=== PATIENT | male | born 1955 | race Caucasian/White ===

== ENCOUNTER 2019-09-08 05:05 | Inpatient (IN) | payer OTHER ==
[2019-09-08] VITALS (55 sets, daily range): BP systolic 72–126; BP diastolic 37–72
[~2019-09-08] VITALS: Ht 157.5 cm; Wt 64.0 kg
--- NOTE | 2019-09-08 05:10 | NUR ---
64 Y/O MALE BIBA C/O DIZZINESS, WEAKNESS, AND FALL X 2-3HRS AGO. RATES PAIN LEVEL 8/10 AND IS LOCATED IN EPIGASTRIC REGION. DOES NOT RADIATE NO WHERE ELSE. PT DENIES HITTING HIS HEAD WHEN HE FELL. LUNG SOUNDS CLEAR ALL THYROUGHOUT. HEART SOUNDS S1S2 PRESENT. GI: N,V APPETITE CHANGE, JAUNDICE, YELLOW SCERLA, FLAT, SOFT, ACTIVE BS, ABD AND TENDERNESS ON EPIGASTRIC REGION. VSS. SKIN INACT. A & O X4. PMH: VERTIGO, HTN, HIGH CHOLESTEROL, DM, LIVER PROBS, PASS SMOKER (15 CIGS A DAY X 30 YEARS) QUIT. NKA.
--- NOTE | 2019-09-08 05:10 | NUR ---
PT BIBA BLS. TAKEN TO BED 3 Addendum: 09/08/19 at 0521 by PEARL PT BIBA ALS
--- NOTE | 2019-09-08 05:36 | NUR ---
EKG PERFORMED AT BEDSIDE
[2019-09-08] MEDS ORDERED: IBUPROFEN 600 MG TAB PO ONE (05:40)
--- NOTE | 2019-09-08 05:49 | NUR ---
Dr. Butler examining patient.
[2019-09-08 05:51] LABS: HEMATOCRIT 29.5 % (36-52); MEAN CORPUSCULAR HEMOGLOBIN 31 pg (27-31); MEAN CORPUSCULAR HGB CONC 34 g/dL (33-37); MEAN CORPUSCULAR VOLUME 90.3 fL (80-94); PLATELET COUNT (AUTO) 353 K/uL (140-450); RED BLOOD CELL COUNT(AUTO) 3.26 MIL/uL (4.20-6.10); RED CELL DISTRIBUTION WIDTH 14.9 % (11.6-13.7); WHITE BLOOD COUNT (AUTO) 6.5 K/uL (4.8-10.8)
--- NOTE | 2019-09-08 05:53 | NUR ---
PT TAKEN TO CT
--- NOTE | 2019-09-08 05:54 | NUR ---
URINE COLLECTED AND SENT TO LAB.
[2019-09-08 06:04] LABS: ANION GAP 17.2 (8-16); POTASSIUM 3.2 mmol/L (3.5-5.1)
[2019-09-08] MEDS ORDERED: METF1000 PO (06:04)
[2019-09-08] MEDS ORDERED: [UNRECOGNIZED DRUG - CODE] PO (06:04)
[2019-09-08 06:08] LABS: LYMPHOCYTES % (MANUAL) 9 % (20-46); MONOCYTES % (MANUAL) 2 % (5-12)
[2019-09-08 06:09] LABS: ALBUMIN 1.5 g/dL (3.4-5.0); TOTAL BILIRUBIN 14.4 mg/dL (0.0-1.0)
--- NOTE | 2019-09-08 06:12 | NUR ---
PT RETURNED BACK FROM CT VIA W/C.
[2019-09-08 06:14] LABS: APPEARANCE,URINE CLEAR (CLEAR); BILIRUBIN,URINE 3+ (NEGATIVE); BLOOD, URINE NEGATIVE (NEGATIVE); COLOR,URINE ORANGE (YELLOW); LEUKOCYTE ESTERASE ,URINE TRACE (NEGATIVE); NITRITE, URINE NEGATIVE (NEGATIVE); PH,URINE 6.5 (5.0-9.0); UGLUCOSE TRACE (NEGATIVE)
[2019-09-08 06:19] LABS: BARBITURATE, URINE NEG. ng/ml (NEG <=200); BENZODIAZEPINE, URINE NEG. ng/mL (NEG <=200); CANNABINOID, URINE NEG. ng/mL (NEG <=50); COCAINE, URINE NEG. ng/mL (NEG <=300); OPIATE, URINE NEG. ng/mL (NEG <=2000); PHENCYCLIDINE SCREEN,URINE NEG. ng/mL (NEG <=25)
[2019-09-08] MEDS ORDERED: NACL 0.9% 1,000 ML IV ONE ×2 (06:20→06:50)
[2019-09-08] MEDS ORDERED: MECLIZINE 25 MG TAB PO ONE (06:20)
[2019-09-08] MEDS ORDERED: ONDANSETRON 4 MG/2 ML VIAL IVP ONE (06:20)
[2019-09-08 06:23] LABS: RBC,URINE NONE SEEN /HPF (0-5); WBC,URINE 0-5 /HPF (0-5)
[2019-09-08 06:24] LABS: COARSE GRANULAR CASTS,URINE 0-10 /LPF (None Seen)
[2019-09-08] MEDS ORDERED: LEVOFLOXACIN 500 MG/D5W PREMIX 100 ML IV ONE (06:50)
[2019-09-08] MEDS ORDERED: DEXTROSE 50% 50 ML SYR IVP ONE (06:50)
[2019-09-08] MEDS ORDERED: LACTULOSE 20 GM/30 ML UDC PO ONE (07:00)
--- NOTE | 2019-09-08 07:00 | NUR ---
PT TRASNFERED TO CT VIA W/C.
[2019-09-08] MEDS ORDERED: POTASSIUM CHLORIDE 10 MEQ TABER PO ONE (07:05)
[2019-09-08] MEDS ORDERED: NACL 0.9% 1,000 ML IV SCH ×3 (07:11→10:15)
[2019-09-08] MEDS ORDERED: HYDROcodone/APAP 7.5/325 MG 1 TAB PO PRN (07:15)
[2019-09-08] MEDS ORDERED: MORPHINE SULFATE 2 MG/ML SYR IVP PRN (07:15)
[2019-09-08] MEDS ORDERED: ACETAMINOPHEN 325 MG TAB PO PRN (07:15)
--- NOTE | 2019-09-08 07:19 | NUR ---
PT BACK FROM CT. INTRODUCED SELF TO PT. VITALS TAKEN, BP 77/53, NOTIFIED RACK PUSHER. PT WILL BE ADMITTED TO ICU.
--- NOTE | 2019-09-08 07:20 | NUR ---
CALLED MADE TO DR BUTTERFIELD TO INFORM OF PT BP. ORDERS CHANGED TO ICU ADMIT.
--- NOTE | 2019-09-08 07:48 | NUR ---
RECEIVED PT FROM ER NURSE ARTURO. PT IS AOX4, ARMENIAN SPEAKING. DAUGHTER AND WITH PT. PT AMBULATED TO BED. GENERALIZED WEAKNESS. CC: SYNCOPE AT HOME. DX SIRS, R/O SEPSIS, SYNCOPE. HEART SOUND 21S2 HEARD. LUNG SOUNDS CLEAR, BOWEL SOUNDS ACTIVE. DENIES N/V AT THIS TIME. CONNECTED PT TO MONITOR. SR. LOW BP. O2 SAT 99%. RR EVEN AND UNLABORED. MRSA SWAB DONE. FLU SWAB DONE. IV TO LEFT AC 18G, FLUSHED, PATENT AND ASYMPTOMATIC, SL. IV TO LEFT AC 18G, RUNNING ROCEPHIN AT 100ML/HR, ASYMPTOMATIC. ORIENTED PT TO ROOM AND CALL LIGHT. FALL PRECAUTION INITIATED. BED LOCKED IN LOWEST POSITION. Addendum: 09/08/19 at 1611 by Brent Singh RN CHANGE "ROCEPHIN" TO "LEVAQUIN".
--- NOTE | 2019-09-08 07:53 | NUR ---
Patient will be admitted to care of [facility]. Admited to ICU . Will go to room #3. Belongings list completed. Report to DEDRICK BECKER.
--- NOTE | 2019-09-08 08:00 | NUR ---
SR JAVIER AND RESIDENTS CAME AND ROUNDED. MADE THEM AWARE OF LOW BP. DR VYAS ORDERED ANOTHER 1L BOLUS.
--- NOTE | 2019-09-08 08:10 | NUR ---
OFFERED ADULT BASIC EDUCATION TEACHER PHONE, HOWEVER, PT PREFERRED TO HAVE HIS DAUGHTER TO TRANSLATE. ADMISSION QUESTIONS ANSWERED. PT HAD MRI ABD DONE LAST WEDNESDAY AT [facility] AND PT'S DOCTOR IS DR CHAN. MADE DR VYAS AWARE.
[2019-09-08 08:21] LABS: PROTHROMBIN TIME 27.4 secs (10.8-13.4)
[2019-09-08] MEDS ORDERED: NOREPINEPHRINE 8 MG in DEXTROSE 5% 250 ML IV PRN (08:30)
--- NOTE | 2019-09-08 08:30 | NUR ---
PATIENT HAS BEEN SCREENED AND CATEGORIZED HIGH NUTRITION RISK. PATIENT WILL BE SEEN WITHIN 1-2 DAYS OF ADMISSION. 09/08/19-09/09/[address]
[2019-09-08] MEDS ORDERED: NOREPINEPHRINE 4 MG in DEXTROSE 5% 250 ML IV PRN (08:50)
[2019-09-08] MEDS: MECLIZINE 25 MG TAB PO SCH ×3 (09:00→17:03)
[2019-09-08 09:06] LABS: FREE T4 (FREE THYROXINE) 1.13 ng/dL (0.76-1.46); LIPASE 219 U/L (73-393); MAGNESIUM 1.6 mg/dL (1.8-2.4); PHOSPHORUS 2.3 mg/dL (2.5-4.9); THYROID STIMULATING HORMONE 1.81 uIU/mL (0.34-3.74); TRIGLYCERIDES 182 mg/dL (30-150)
[2019-09-08 09:07] LABS: HDL CHOLESTEROL 6 mg/dL (40-60); LDL (CALC) 198 mg/dL (60-100)
--- NOTE | 2019-09-08 09:35 | NUR ---
DR VYAS EXPLAINED TO PT ABOUT CVC PLACEMENT. OFFERED CLINICAL ABSTRACTOR PHONE. PT PREFERS HIS SON TO TRANSLATE. PT'S SON TRANSLATED FOR PT. CONSENT SIGNED.
[2019-09-08] MEDS ORDERED: NOREPINEPHRINE 4 MG/4 ML VIAL IV ONE (09:41)
[2019-09-08] MEDS: DEXT 5% / NACL 0.45% 1,000 ML IV SCH (09:59)
[2019-09-08] MEDS ORDERED: ONDANSETRON 4 MG/2 ML VIAL IM/IVP PRN (10:00)
--- NOTE | 2019-09-08 10:10 | NUR ---
DR GUNN INSERTED CVC AT RIGHT FEMORAL. APPLIED CVC DRESSING AND 2KG WEIGHT TO PREVENT BLEEDING.
--- NOTE | 2019-09-08 10:30 | NUR ---
ALEXANDRE INSERTED 16 FR. STERIL TECHNIQUES APPLIED. PT TOLERATED OK. NO BLEEDING NOTED. URINE IS LIGHT SALVATORE.
--- NOTE | 2019-09-08 10:38 | NUR ---
DISCHARGE PLANNIN64 Y/O MALE PATIENT FROM HOME, WHO CAME IN DUE TO SYNCOPE. PAST MEDICAL HISTORY INCLUDE DM AND DYSLIPIDEMIA. INITIAL DIAGNOSIS OF SIRS, RULE OUT SEPSIS AND SYNCOPE. CURRENT LABS INCLUDE WBC 6.5, H/H 10.0/29.5, NA/K 131/3.2, AST/ALT 153/131, ALB 1.5, AMMONIA LEVEL 37 AND LACTIC ACID 3.8-3.4. ON ZOSYN. ON LEVOPHED DRIP, BP 72/48. SURGICAL CONSULT WITH DR. GUNN FOR CENTRAL LINE PLACEMENT. GI CONSULT WITH DR. LEAVITT FOR ACUTE LIVER FAILURE. CRITICAL CARE CONSULT WITH DR. JAMESON FOR ICU ADMISSION. HEAD CT SHOWED MILD ETHMOID CHRONIC SINUSITIS. CXR NORMAL. ABD/PELVIS CT SHOWED HEPATIC DUCTAL DILATATION WITH QUESTIONABLE SOFT TISSUE PROMINENCE OF DUODENUM, HEPATOMEGALY, PROBABLE RIGHT RENAL CYST, ENLARGED PERIPANCREATIC LYMPH NODE WELL PROMINENT RETROPERITONEAL LYMPH NODES. BLOOD CULTURES ARE STILL PENDING. DC PLAN PENDING ON THE PATIENT'S RESPONSE TO TREATMENT. Addendum: 09/09/19 at 1524 by Komal Chung CM DC PLANNING: ERCP WITH BIOPSY, SPHINCTEROTOMY AND STENT PLACEMENT PERFORMED BY DR ARAUJO. PT TOLERATED WELL . RECOMMENDED TO CONTINUE IV ABX AND WILL BE REFERRED TO ONCOLOGY AND HE WILL NEED A METAL STENT. DC PLAN PER ORDER. CM TO FOLLOW
[2019-09-08] MEDS ORDERED: SODIUM PHOS / POTASSIUM PHOS 1 PKT PDR PO SCH (11:00)
[2019-09-08] MEDS ORDERED: MAG SULF 2000 MG/WATER PREMIX 50 ML IV SCH (11:00)
[2019-09-08] MEDS: BLOOD GLUCOSE MONITORING 1 DEV DEV FS SCH ×3 (11:35→21:15)
[2019-09-08] MEDS: PIPERACILLIN/TAZOBACTAM 3.375 GM in DEXTROSE 5% 50 ML IV SCH ×2 (12:17→21:13)
[2019-09-08] MEDS ORDERED: DEXTROSE 50% 50 ML SYR IVP PRN (12:20)
--- NOTE | 2019-09-08 13:00 | NUR ---
PT HAD LUNCH, PT'S ASSISTED PT WITH MEAL. NO S/S OF DISTRESS OR SWALLOWING ISSUE AT THIS TIME.
--- NOTE | 2019-09-08 13:30 | NUR ---
BEDSIDE COMMODE PROVIDED. PT HAD BMX1, DIARRHEA.
--- NOTE | 2019-09-08 13:58 | NUR ---
09/08/19 RD INITIAL ASSESSMENT COMPLETED PLEASE REFER TO NUTRITION ASSESSMENT UNDER CARE ACTIVITY FOR ESTIMATED NUTRITIONAL NEEDS. 1. RECOMMEND MECHANICAL SOFT CCHO 60GM DIET WITH GLUCERNA BID TOLERATED 2. ENCOURAGED INCREASING PO INTAKE 3. RD WILL PROVIDE NUTRITION EDUCATION ON DIABETES AND CIRRHOSIS DURING FOLLOW UP VISIT 4. RD TO FOLLOW-UP 2-3 DAYS, HIGH RISK HUMP[address]REY [address]EL[address] RD
--- NOTE | 2019-09-08 14:30 | NUR ---
DR LEAVITT CAME AND DISCUSSED WITH PT ABOUT ERCP.
[2019-09-08] MEDS ORDERED: PHYTONADIONE 10 MG/ML AMP SUBQ SCH (15:00)
[2019-09-08] MEDS ORDERED: KETOROLAC 15 MG/ML VIAL IVP PRN (15:10)
[2019-09-08] MEDS ORDERED: HYDROmorphone 1 MG/ML AMP IVP PRN (15:10)
[2019-09-08] MEDS: NOREPINEPHRINE 4 MG in DEXTROSE 5% 250 ML IV PRN ×2 (16:02→23:32)
[2019-09-08] MEDS: INSULIN LISPRO SLIDING SCALE 100 UNITS/ML VIAL SUBQ PRN ×2 (17:07→21:22)
--- NOTE | 2019-09-08 17:37 | NUR ---
HAILEY Assessment/Discharge Plan High Risk DC Screen Yes Name: Darius Morales Home Relationship: son Pre-Admission Living Arrangements: Lives with Other Other: : Diane Harrington Prior ADL Independent Healthcare Decision Maker: Patient Advance Directive No Information Taught: Community Resources Person Taught: Patient Spouse Teaching Tools: Community Resources Verbal Factors Affecting Learning: None Participation Level: Active Evaluation: Gestures Understanding Verbalizes Understanding Educator: HAILEY Oscar Discipline: Case Mgt/Social Svcs Tentative Discharge Plan Summary: Patient is a 64 year old male admitted for sirs/rule out sepsis. I met with patient and patient's Diane at bedside. Patient and Diane speak Niuean. Patient's pcp is . He does not have any difficulty filling his prescriptions at pharmacy. He denied alcohol/substance abuse. He stated he has been having depression and anxiety. He denied SI and HI. He is not taking medication for depression or anxiety. He is not receiving counseling/mental health services. I provided them with education on [facility], www.[facility].org for community resources including counseling/mental health services. Grain Distributor and/or Pulmonary Disease Specialist will follow up as needed. Signature: HAILEY Oscar Date: Sep 08, 2019
--- NOTE | 2019-09-08 19:15 | NUR ---
RECEIVED REPORT FROM DAYSHIFT NURSE AT PATIENTS BEDSIDE. PT AWAKE AND ALERT, CHINESE SPEAKING. GENERAL APPEARANCE WITHOUT DISTRESS BUT OBVIOUS JAUNDICE NOTED TO SKIN AND SCLERA/EYES. ON ROOM AIR, LUNG SOUNDS DIMINISHED. BREATHING IS UNLABORED, NO SIGNS OF COUGH OR CONGESTION. PATIENT DENIES NAUSEA AT THE TIME. S1S2, SINUS RHYTHM ON MONITOR. LEFT PERIPHERAL IV 18G, FLUSHED AND PATENT, SALINE LOCKED. RIGHT FEMORAL CENTRAL LINE, TRIPLE LUMEN IN PLACE, INFUSING LEVOPHED @ 6MCG/KG/MIN-22.5ML/HR. BLOOD PRESSURE STABLE AT THIS TIME. IV FLUIDS D5 1/2NS INFUSING @ 75ML/HR. ABDOMEN IS SOFT, AND TENDER WITH PALPATION, ACTIVE BOWEL SOUNDS. ALEXANDRE CATHETER IN PLACE, CLEAR YELLOW URINE NOTED. PATIENT ORIENTED TO CALL LIGHT, UPDATED ON TREATMENT AND CARE PLAN. SIDERAILS UP x3. CONTINUE TO MONITOR.
--- NOTE | 2019-09-08 21:43 | NUR ---
PATIENT OUT OF BED, AMBULATES TO BEDSIDE COMMODE WITH STANDBY ASSISTANCE. AND SON AT BEDSIDE TO HELP PATIENT. MODERATE AMOUNT OF LOOSE BROWN STOOL NOTED. PERINEAL AND SKIN CARE PROVIDED. PATIENT BACK IN BED AND CONNECTED TO MELANGEUR OPERATOR. NO INCIDENT.
--- NOTE | 2019-09-08 23:50 | NUR ---
PATIENT RESTING WELL IN BED, EYES CLOSED. ON ROOM AIR. ALL VITALS WNL. ON LEVOPHED DRIP AT 2MCG/KG/MIN. SIDERAILS UP x3, SAFETY ALARMS IN PLACE. AT BEDSIDE.
[2019-09-09] VITALS (57 sets, daily range): BP systolic 80–105; BP diastolic 46–62
--- NOTE | 2019-09-09 | NUR ---
NPO SIGN PLACED AT PATIENTS BEDSIDE, ALL FOOD AND DRINKS REMOVED. PATIENT AND FAMILY REORIENTED TO NPO STATUS, VERBALIZES UNDERSTANDING.
--- NOTE | 2019-09-09 03:15 | NUR ---
PATIENT UP AND AT BEDSIDE COMMODE. ALEXANDRE CATHETER REMAINS IN PLACE DRAINING BY GRAVITY. MODERATE SIZED DARK BROWN SEMIFORMED STOOL NOTED. STOOL SAMPLE COLLECTED FOR OCCULT TEST, AND TAKEN TO LAB. PATIENT PROVIDED SKIN CARE AND BACK IN BED WITHOUT INCIDENT.
--- NOTE | 2019-09-09 03:59 | NUR ---
PATIENT ORIENTED TO PM CARE/SPONGE BATH. PATIENT IS INDEPENDENT WITH MINIMAL ASSISTANCE. AT THIS TIME, REQUESTS TO SLEEP FIRST AND IN THE MORNING WILL ALLOW SPONGE BATH/ORAL CARE. WILL FOLLOWUP. BED LOCKED AND IN LOW POSITION, SIDERAILS UPx3, CALL LIGHT WITHIN REACH. ASSISTED WITH TURN AND REPOSITIONING.
--- NOTE | 2019-09-09 04:27 | NUR ---
PREOP SURGICAL CHECKLIST COMPLETE. PATIENTS SON AT BEDSIDE, ABLE TO ANSWER QUESTIONS. CONTACT INFO: KELLI RUSESLL-SON-[phone] KODY (MUNIR) AMALIA RUSSELLIBWWSHOM-NDRKDFJA-[phone] NO BELONGINGS WITH PATIENT, LEFT WITH FAMILY. NO JEWELRY/CONTACTS/GLASSES/IMPLANTS/PACEMAKER
[2019-09-09] MEDS: PIPERACILLIN/TAZOBACTAM 3.375 GM in DEXTROSE 5% 50 ML IV SCH ×3 (04:34→17:30)
--- NOTE | 2019-09-09 05:23 | NUR ---
BLOOD PRESSURE 85/48, MAP ABOVE 60. WITHIN NORMAL LIMITS, LEVOPHED AT 2MCG/KG/MIN. FLACC 0. PATIENTS HEART RATE TRENDS LOW, SOMETIMES IN HIGH 50'S, NO OTHER SYMPTOMS. WILL CONTINUE TO MONITOR.
[2019-09-09 05:39] LABS: HEMATOCRIT 26.1 % (36-52); HEMOGLOBIN 8.6 g/dL (12.0-18.0); MEAN CORPUSCULAR HEMOGLOBIN 30 pg (27-31); MEAN CORPUSCULAR HGB CONC 33 g/dL (33-37); MEAN CORPUSCULAR VOLUME 90.1 fL (80-94); PLATELET COUNT (AUTO) 227 K/uL (140-450); RED CELL DISTRIBUTION WIDTH 15.1 % (11.6-13.7)
[2019-09-09 05:52] LABS: ANION GAP 12.9 (8-16); CARBON DIOXIDE 20.8 mmol/L (21-32); POTASSIUM 3.7 mmol/L (3.5-5.1)
[2019-09-09 05:57] LABS: MAGNESIUM 2.3 mg/dL (1.8-2.4); PHOSPHORUS 2.8 mg/dL (2.5-4.9)
[2019-09-09 06:07] LABS: HEPATITIS A ANTIBODY IGM Negative (Negative); HEPATITIS B CORE AB TOTAL Negative (Negative); HEPATITIS B SURFACE ANTIBODY Non Reactive (.); HEPATITIS B SURFACE ANTIGEN Negative (Negative)
[2019-09-09 06:51] LABS: PROTHROMBIN TIME 15.7 secs (10.8-13.4)
--- NOTE | 2019-09-09 07:30 | NUR ---
RECEIVED REPORT FROM PM SHIFT NURSE AT PATIENTS BEDSIDE. PT AWAKE ,ALERT, BOTSWANAN SPEAKING. ABLE TO MAKE NEEDS KNOWN. ON RA, NO RESPIRATORY DISTRESS NOTED BUT PT HAS JAUNDICE TO SKIN AND SCLERA/EYES. BEDSIDE MONITOR SHOWS SR. 70S S1S2. PT HAS IV TO LEFT PERIPHERAL IV 18G, FLUSHED AND PATENT, SALINE LOCKED. RIGHT FEMORAL CENTRAL LINE, TRIPLE LUMEN IN PLACE, INFUSING LEVOPHED @ 2MCG/MIN-7.5ML/HR. IV FLUIDS D5 1/2NS INFUSING @ 75ML/HR. ABDOMEN IS SOFT, AND TENDER WITH PALPATION PER PT, ACTIVE BOWEL SOUNDS. ALEXANDRE CATHETER IN PLACE, CLEAR YELLOW URINE NOTED. PATIENT ORIENTED TO CALL LIGHT, UPDATED ON TREATMENT AND CARE PLAN. CONTINUE TO MONITOR.
[2019-09-09 07:31] LABS: WHITE BLOOD COUNT (AUTO) 29.1 K/uL (4.8-10.8)
[2019-09-09 07:33] LABS: BASOPHILS % (MANUAL) 0 % (0-2); EOSINOPHILS % (MANUAL) 0 % (0-4); LYMPHOCYTES % (MANUAL) 1 % (20-46); MONOCYTES % (MANUAL) 2 % (5-12)
[2019-09-09] MEDS ORDERED: PROPOFOL 200 MG/20 ML VIAL IV ONE (08:24)
[2019-09-09] MEDS ORDERED: VANCOMYCIN PER PHARMACY MC PRN (08:35)
[2019-09-09] MEDS ORDERED: VANCOMYCIN 500 MG in DEXTROSE 5% 100 ML IV SCH (09:00)
[2019-09-09] MEDS: MECLIZINE 25 MG TAB PO SCH ×3 (09:00→17:30)
--- NOTE | 2019-09-09 09:55 | NUR ---
OR NURSE BECERRA CAME IN TO TAKE PT TO OR.
[2019-09-09] MEDS ORDERED: MORPHINE SULFATE 2 MG/ML SYR IVP PRN (10:05)
--- NOTE | 2019-09-09 10:50 | NUR ---
PT CAME BACK TO ICU. AWAKE, ALERT.
--- NOTE | 2019-09-09 11:15 | NUR ---
WHEN PT CAME BACK TO ICU AT 1055, THERE WAS ABOUT 100 CC FRESH FROZEN PLASMA LEFT WHICH IS DONE AT THIS TIME. NO REACTION NOTED. PT TOLERATED WELL.
[2019-09-09] MEDS: BLOOD GLUCOSE MONITORING 1 DEV DEV FS SCH ×3 (12:04→21:08)
--- NOTE | 2019-09-09 14:00 | NUR ---
PT EAT HIS LUNCH TRAY, HAD A GOOD APPETITE. FAMILY AT BEDSIDE. Addendum: 09/09/19 at 1849 by Rahul Martínez RN HELD LEVOPHED DRIP AT 1400.
[2019-09-09 14:18] LABS: HEMATOCRIT 25.4 % (36-52); HEMOGLOBIN 8.4 g/dL (12.0-18.0); MEAN CORPUSCULAR HEMOGLOBIN 30 pg (27-31); MEAN CORPUSCULAR HGB CONC 33 g/dL (33-37); MEAN CORPUSCULAR VOLUME 89.6 fL (80-94); PLATELET COUNT (AUTO) 193 K/uL (140-450); RED BLOOD CELL COUNT(AUTO) 2.83 MIL/uL (4.20-6.10); RED CELL DISTRIBUTION WIDTH 15.2 % (11.6-13.7); WHITE BLOOD COUNT (AUTO) 21.1 K/uL (4.8-10.8)
[2019-09-09 14:43] LABS: EOSINOPHILS % (MANUAL) 1 % (0-4); LYMPHOCYTES % (MANUAL) 3 % (20-46); MONOCYTES % (MANUAL) 1 % (5-12)
--- NOTE | 2019-09-09 16:00 | NUR ---
PT RESTING IN BED. ON RA. VITALS IN NORMAL RANGE. FAMILY AT BEDSIDE.
[2019-09-09] MEDS: SODIUM FERRIC GLUCONATE 125 MG in NACL 0.9% 100 ML IV SCH (16:13)
[2019-09-09] MEDS: DEXT 5% / NACL 0.45% 1,000 ML IV SCH (16:16)
--- NOTE | 2019-09-09 18:50 | NUR ---
PT RESTING IN BED. NO S/S OF RESPIRATORY DISTRESS NOTED. PT STATED HE FEELS HIS ABD PAIN GETTING MUCH BETTER COMPARED TO YESTERDAY. AT BEDSIDE. PT DOES NOT WANT TO EAT HIS DINNER YET. HE WANTS TO KEEP IT FOR LATER.
--- NOTE | 2019-09-09 19:20 | NUR ---
RECEIVED PATIENT ON BED WITH HOB ELEVATED TO 30 DEGREE; AWAKE , ALERT AND ORIENTED, [place] SPEAKING ONLY; ABLE TO MOVE LIMBS FREELY. BREATHING EVEN AND UNLABORED, ON ROOM AIR. CARDIACSCOPE SHOWS ON SINUS RHYTHM HR 76/MIN NO ARRHYTHMMIAS SEEN. PERIPHERAL PULSES + NO PEDAL EDEMA SEEN. COMMENCING ON IVF D5 1/2 NORMAL SALINE AT 75 ML/HR VIA CENTRAL LINE ON RIGHT FEMORAL; PATENT AND INTACT. ABDOMEN IS SOFT, HYPOACTIVE BOWEL SOUNDS. WITH ALEXANDRE CATH IN PLACE DRAINING TO CLEAR BROWNISH YELLOW URINE OUTPUT. SKIN IS JAUNDICE INCLUDING THE SCLERA.
--- NOTE | 2019-09-09 21:00 | NUR ---
ATE HIS DINNER FOOD WITH FAIR APPETITE.
[2019-09-10] VITALS (11 sets, daily range): BP systolic 94–117; BP diastolic 51–61
[2019-09-10] MEDS ORDERED: MELATONIN 3 MG TAB PO PRN (00:25)
[2019-09-10] MEDS: PIPERACILLIN/TAZOBACTAM 3.375 GM in DEXTROSE 5% 50 ML IV SCH ×5 (00:28→23:45)
--- NOTE | 2019-09-10 01:10 | NUR ---
COMPLAINED OF UNABLE TO SLEEP; REFERRED TO DR. AZUL, SEEN AND EXAMINED PATIENT; WITH NEW ORDER, CARRIED OUT.
--- NOTE | 2019-09-10 02:00 | NUR ---
PATIENT WAS ABLE TO REST AND SLEEP GOOD AFTER GIVING HIS MELATONIN DOSE ORDERED.
[2019-09-10 06:31] LABS: HEMATOCRIT 23.8 % (36-52); HEMOGLOBIN 7.8 g/dL (12.0-18.0); MEAN CORPUSCULAR HEMOGLOBIN 30 pg (27-31); MEAN CORPUSCULAR HGB CONC 33 g/dL (33-37); MEAN CORPUSCULAR VOLUME 89.8 fL (80-94); PLATELET COUNT (AUTO) 186 K/uL (140-450); RED BLOOD CELL COUNT(AUTO) 2.65 MIL/uL (4.20-6.10); RED CELL DISTRIBUTION WIDTH 15.1 % (11.6-13.7); WHITE BLOOD COUNT (AUTO) 16.8 K/uL (4.8-10.8)
--- NOTE | 2019-09-10 06:45 | NUR ---
STILL SLEEPING QUIETLY; V/S WITHIN ACCEPTABLE RANGE.
--- NOTE | 2019-09-10 06:50 | NUR ---
ON SINUS FERNANDA NOTED ON THE MONITOR WITH HR AROUND 58/MIN; CLOSE OBSERVATION DONE.
[2019-09-10 07:10] LABS: ALBUMIN 1.2 g/dL (3.4-5.0); ANION GAP 10.8 (8-16); CARBON DIOXIDE 23.2 mmol/L (21-32); TOTAL BILIRUBIN 6.5 mg/dL (0.0-1.0)
[2019-09-10 07:12] LABS: MAGNESIUM 2.1 mg/dL (1.8-2.4); PHOSPHORUS 2.5 mg/dL (2.5-4.9)
[2019-09-10 07:22] LABS: BASOPHILS % (MANUAL) 0 % (0-2); EOSINOPHILS % (MANUAL) 2 % (0-4); LYMPHOCYTES % (MANUAL) 6 % (20-46); MONOCYTES % (MANUAL) 4 % (5-12)
--- NOTE | 2019-09-10 07:30 | NUR ---
ENDORSED TO AM SHIFT ROSITA CHOUDHARY FOR CONTINUITY OF CARE.
--- NOTE | 2019-09-10 07:30 | NUR ---
RECEIVED REPORT FROM PM SHIFT NURSE AT PATIENTS BEDSIDE. PT AWAKE ,ALERT, NIGERIEN SPEAKING. ABLE TO MAKE NEEDS KNOWN. ON RA, NO RESPIRATORY DISTRESS NOTED . BEDSIDE MONITOR SHOWS SR. 60S S1S2. PT HAS IV TO LEFT PERIPHERAL IV 18G, FLUSHED AND PATENT, SALINE LOCKED. RIGHT FEMORAL CENTRAL LINE, TRIPLE LUMEN IN PLACE RUNNING IV FLUIDS D5 1/2NS INFUSING @ 75ML/HR. ABDOMEN IS SOFT, AND TENDER WITH PALPATION PER PT, ACTIVE BOWEL SOUNDS. ALEXANDRE CATHETER IN PLACE, CLEAR YELLOW URINE NOTED. PATIENT ORIENTED TO CALL LIGHT, POC EXPLAINED PT VERBALIZED UNDERSTANDING. WILL CONTINUE TO MONITOR.
[2019-09-10] MEDS: BLOOD GLUCOSE MONITORING 1 DEV DEV FS SCH ×4 (08:29→21:02)
[2019-09-10] MEDS: DEXT 5% / NACL 0.45% 1,000 ML IV SCH (08:32)
[2019-09-10] MEDS: MECLIZINE 25 MG TAB PO SCH (08:32)
[2019-09-10 08:46] LABS: HEMOGLOBIN 7.7 g/dL (12.0-18.0); MEAN CORPUSCULAR HEMOGLOBIN 30 pg (27-31); MEAN CORPUSCULAR HGB CONC 33 g/dL (33-37); MEAN CORPUSCULAR VOLUME 89.3 fL (80-94); PLATELET COUNT (AUTO) 182 K/uL (140-450); RED BLOOD CELL COUNT(AUTO) 2.57 MIL/uL (4.20-6.10); RED CELL DISTRIBUTION WIDTH 15.1 % (11.6-13.7); WHITE BLOOD COUNT (AUTO) 15.9 K/uL (4.8-10.8)
[2019-09-10 09:17] LABS: BASOPHILS % (MANUAL) 0 % (0-2); EOSINOPHILS % (MANUAL) 3 % (0-4); LYMPHOCYTES % (MANUAL) 6 % (20-46); MONOCYTES % (MANUAL) 3 % (5-12)
[2019-09-10] MEDS: NACL 0.9% 1,000 ML IV SCH (10:00)
[2019-09-10] MEDS: KCL 20 MEQ/WATER INJ PREMIX 100 ML IV SCH ×2 (10:29→11:59)
--- NOTE | 2019-09-10 13:56 | NUR ---
PT RESTING IN BED, COMMUNICATE WITH FAMILY AT BEDSIDE. PT DOES NOT HAVE ANY S/S OF PAIN OR SOB.
[2019-09-10 15:56] LABS: FERRITIN 497 ng/mL (30 - 400); TRANSFERRIN 144 mg/dL (200 - 370)
[2019-09-10] MEDS: SODIUM FERRIC GLUCONATE 125 MG in NACL 0.9% 100 ML IV SCH (17:00)
--- NOTE | 2019-09-10 17:00 | NUR ---
ASSISTED PT TO USE BEDSIDE COMMODE. PT HAD SOFT BM. ASSISTED PT BACK TO BED.
[2019-09-10] MEDS: FERROUS SULFATE 325 MG TABEC PO SCH (17:57)
--- NOTE | 2019-09-10 18:00 | NUR ---
REMOVED F/C PER ORDER. PT TOLERATED WELL. TIP INTACT.
--- NOTE | 2019-09-10 19:30 | NUR ---
CHANGE OF SHIFT REPORT GIVEN AT BEDSIDE BY DAY SHIFT NURSE FUNMI. PATIENT APPEARS JAUNDICE IN COLOR. ROOM AIR. PERRLA BILATERALLY. OBEYS COMMANDS. ABLE TO MAKE NEEDS KNOWN. ABLE TO UNDERSTAND SLOVENIAN. ABLE TO MOVE BUE/BLE EXTREMITIES. ALL PULSES PRESENT. SKIN INTACT. LEFT AC 18 GAUGE INTACT. NOT IN USE AT THIS TIME. RIGHT FEMORAL CENTRAL LINE TRIPLE LUMEN PRESENT. FLUSHED WITH NS AND PATENT. INTACT. RUNNING NS IVF AT 60 ML/HR. PATIENT ABLE TO USE URINAL AND BEDSIDE COMMODE. FAMILY LEFT ROOM FOR CHANGE OF SHIFT AT THIS TIME. DENIES PAIN. RESPIRATIONS SYMMETRICAL AND UNLABORED. LUNG SOUNDS CLEAR. BOWEL SOUNDS ACTIVE IN ALL 4 QUAD. CALL LIGHT WITHIN REACH. NO SOB. NO S/S OF DISTRESS NOTED. WILL CONTINUE TO MONITOR.
--- NOTE | 2019-09-10 20:21 | NUR ---
250 CC CLEAR LIGHT SALVATORE URINE NOTED IN URINAL. PATIENT USES URINAL BY SELF.
[2019-09-10] MEDS: ASCORBIC ACID 500 MG TAB PO SCH (21:03)
--- NOTE | 2019-09-10 21:03 | NUR ---
FAMILY AT BEDSIDE. PATIENT EATING DINNER TRAY AT THIS TIME. WARMED UP FOR THEM IN MICROWAVE. WARNED TO LET COOL DOWN. MAY BE HOT. MEDICATION GIVEN AT THIS TIME. BS 126. NO SOB OR S/S OF DISTRESS NOTED. WILL CONTINUE TO MONITOR.
--- NOTE | 2019-09-10 22:00 | NUR ---
DR MAIN PRESENT AT BEDSIDE. CHARGE NURSE GAVE UPDATE OF STATUS. STATES TO REMOVE CENTRAL LINE. CHARGE NURSE SPOKE WITH RESIDENT DR AZUL ABOUT REMOVAL OF CENTRAL LINE IN FEMORAL REGION. PER CHARGE NURSE DR AZUL STATES OK TO REMOVE.
--- NOTE | 2019-09-10 23:00 | NUR ---
200 CC OF URINE CLEAR LIGHT SALVATORE IN URINAL
--- NOTE | 2019-09-10 23:56 | NUR ---
CLEAR LIGHT SALVATORE URINAL IN URINAL 225 CC
[2019-09-11] VITALS (8 sets, daily range): BP systolic 104–157; BP diastolic 57–71
--- NOTE | 2019-09-11 00:53 | NUR ---
FAMILY PRESENT AT BEDSIDE.PATIENT SHOWING NO SOB OR S/S OF DISTRESS NOTED
--- NOTE | 2019-09-11 01:15 | NUR ---
200 CC OF LIGHT SALVATORE URINE NOTED IN URINAL.
--- NOTE | 2019-09-11 01:26 | NUR ---
PATIENT SLEEPING AT THIS TIME. FAMILY LEFT. NO SOB NO DISTRESS NOTED. WILL CONTINUE TO MONITOR. VSS.
[2019-09-11] MEDS: NACL 0.9% 1,000 ML IV SCH ×2 (01:55→18:35)
--- NOTE | 2019-09-11 02:50 | NUR ---
225 CC CLEAR LIGHT SALVATORE IN URINAL
--- NOTE | 2019-09-11 05:00 | NUR ---
central line taken out by change nurse. pressure dressing applied. no bleeding. per dr sumner central line taken out and per sagar nurse and charge nurse notified bradley. ok to take out will continue to monitor
[2019-09-11] MEDS: PIPERACILLIN/TAZOBACTAM 3.375 GM in DEXTROSE 5% 50 ML IV SCH ×3 (05:46→18:56)
--- NOTE | 2019-09-11 05:59 | NUR ---
URINE 425 CC YELLOW CLEAR IN URINAL. FAMILY PRESENT AT BEDSIDE. GIVEN ABTS. TOLERATING WELL. WILL CONTINUE TO MONITOR.
--- NOTE | 2019-09-11 06:26 | NUR ---
TRANSFERRED PATIENT TO [facility] FLOOR VIA W/C WITHOUT INJURY. ALL BELONGINGS TRANSFERRED WITH MEDICATIONS AND CHART. PLACED PATIENT IN ROOM WITHOUT INJURY. PATIENT LYING IN BED CALM. NO SOB OR DISTRESS NOTED. WILL CONTINUE TO MONITOR. VSS. ON INSPECTOR PUBLICATIONS AT THIS TIME.
[2019-09-11 06:32] LABS: BASOPHILS # (AUTO) 0.1 K/uL (0.00-0.22); BASOPHILS % (AUTO) 0.6 % (0.0-2.0); EOSINOPHILS # (AUTO) 0.6 K/uL (0-0.4); EOSINOPHILS % (AUTO) 4.2 % (0.0-4.0); HEMATOCRIT 23.5 % (36-52); HEMOGLOBIN 7.8 g/dL (12.0-18.0); LYMPHOCYTES # (AUTO) 1.2 K/uL (2.0-11.5); LYMPHOCYTES % (AUTO) 8.5 % (20.5-51.1); MEAN CORPUSCULAR HEMOGLOBIN 30 pg (27-31); MEAN CORPUSCULAR HGB CONC 33 g/dL (33-37); MEAN CORPUSCULAR VOLUME 89.6 fL (80-94); MONOCYTES # (AUTO) 0.6 K/uL (0.8-1.0); MONOCYTES % (AUTO) 4.4 % (1.7-9.3); NEUTROPHILS # (AUTO) 11.2 K/uL (1.8-7.7); NEUTROPHILS % (AUTO) 82.3 % (42.2-75.2); PLATELET COUNT (AUTO) 204 K/uL (140-450); RED BLOOD CELL COUNT(AUTO) 2.63 MIL/uL (4.20-6.10); RED CELL DISTRIBUTION WIDTH 14.8 % (11.6-13.7); WHITE BLOOD COUNT (AUTO) 13.7 K/uL (4.8-10.8)
[2019-09-11 06:36] LABS: ALBUMIN 1.2 g/dL (3.4-5.0); ANION GAP 9.9 (8-16); CARBON DIOXIDE 24.8 mmol/L (21-32); CREATININE 0.9 mg/dL (0.7-1.3); MAGNESIUM 1.8 mg/dL (1.8-2.4); PHOSPHORUS 2.8 mg/dL (2.5-4.9); POTASSIUM 3.7 mmol/L (3.5-5.1); TOTAL BILIRUBIN 4.4 mg/dL (0.0-1.0)
--- NOTE | 2019-09-11 07:00 | NUR ---
change of shift report given to ambrocio on mst floor. notified of d/c central line. family present. arrived at 0630 on floor. patient stable. no sob noted. no s/s of distress noted. endorsed to nurse and all belongings given to nurse
[2019-09-11] MEDS: BLOOD GLUCOSE MONITORING 1 DEV DEV FS SCH ×4 (07:30→21:00)
--- NOTE | 2019-09-11 07:58 | NUR ---
RECEIVED REPORT FROM PM SHIFT NURSE AT PATIENTS BEDSIDE. PT AAOX4, SAMI SPEAKING. ABLE TO MAKE NEEDS KNOWN. ON RA, NO RESPIRATORY DISTRESS NOTED . PT HAS IV TO LEFT PERIPHERAL IV 18G FLUSHED AND PATENT AND TO INFUSE NS @ 60ML/HR. RIGHT FEMORAL CENTRAL LINE D/C BY BENEFITS REPRESENTATIVE PER MD ORDERS. ABDOMEN IS SOFT, AND NONTENDER WITH PALPATION PER PT, ACTIVE BOWEL SOUNDS. PATIENT ORIENTED TO CALL LIGHT, POC EXPLAINED PT VERBALIZED UNDERSTANDING. WILL MONITOR PT CLOSELY. BED IN LOW POSITION.
--- NOTE | 2019-09-11 09:15 | NUR ---
PT GIVEN ALL SCHEDULED MEDS. PT TOLERATED WELL. ALL NEEDS MET.
[2019-09-11] MEDS: FERROUS SULFATE 325 MG TABEC PO SCH ×2 (10:16→17:01)
[2019-09-11] MEDS: ASCORBIC ACID 500 MG TAB PO SCH ×2 (10:16→22:07)
--- NOTE | 2019-09-11 11:21 | NUR ---
PT RESTING IN BED WITH AT BEDSIDE. ALL NEEDS MET. WILL CONTINUE TO ROUND FREQUENTLY ON PT.
--- NOTE | 2019-09-11 13:13 | NUR ---
PT RESTING IN BED. ALL NEEDS MET. WILL CONTINUE TO ROUND ON PT.
--- NOTE | 2019-09-11 13:16 | NUR ---
P.T. NOTES P.T. GUSTABO COMPLETED; PATIENT MAY AMBULATE INSIDE ROOM ADLIB. Addendum: 09/11/19 at 1317 by Mayuri Cordova PT Amended: Links added.
--- NOTE | 2019-09-11 14:18 | NUR ---
09/11/19 RD FOLLOW UP COMPLETED PLEASE REFER TO NUTRITION ASSESSMENT UNDER CARE ACTIVITY FOR ESTIMATED NUTRITIONAL NEEDS. 1. RECOMMEND MECHANICAL SOFT DIET WITH GLUCERNA BID TOLERATED 2. ENCOURAGED INCREASING PO INTAKE 3. RD PROVIDED NUTRITION EDUCATION FOR DIABETES. PT AND FAMILY ACCEPTED. 4. RD TO FOLLOW-UP 2-3 DAYS, HIGH RISK HUMP[address]REY [address]
--- NOTE | 2019-09-11 15:21 | NUR ---
PT RESTING IN BED. ALL NEEDS MET. WILL CONTINUE TO ROUND ON PT.
[2019-09-11] MEDS: SODIUM FERRIC GLUCONATE 125 MG in NACL 0.9% 100 ML IV SCH (16:53)
--- NOTE | 2019-09-11 19:46 | NUR ---
ENDORSED PT TO PERLITE GRINDER FOR CONTINUITY OF CARE. PT IN STABLE CONDITION AT THIS TIME.
--- NOTE | 2019-09-11 19:47 | NUR ---
RECEIVED PT FROM ALLEN BECKER PT MICRONESIAN SPEAKER , AAOX4 JAUNDICE ON TELEMETRY SR IV ON LEFT ARM INFUSING WELL, RELATIVES AT BED SIDE DENIES ANY PAIN INITIAL ASSESSMENT DONE
--- NOTE | 2019-09-11 20:15 | NUR ---
DR WHITING FROM [facility] CAME TO SEE THE PT
[2019-09-12] VITALS: BP 111/56
--- NOTE | 2019-09-12 | NUR ---
PT SLEEPING WELL NOT DISTRESS NOTED ON TELE SR
[2019-09-12] MEDS: PIPERACILLIN/TAZOBACTAM 3.375 GM in DEXTROSE 5% 50 ML IV SCH ×3 (00:26→12:00)
[2019-09-12 04:00] VITALS: BP 96/49
--- NOTE | 2019-09-12 04:00 | NUR ---
SPONGE BATH GIVEN LINEN CHANGED NOT DISTRESS NOTED ON TELESR VOIDING WELL
--- NOTE | 2019-09-12 06:15 | NUR ---
BLOOD SUGAR TEST 99 PT REMAIN STABLE AT THIS TIME SLEEPING WELL IV ON LEFT AC INFUSING WELL
[2019-09-12] MEDS: BLOOD GLUCOSE MONITORING 1 DEV DEV FS SCH ×2 (06:48→12:02)
--- NOTE | 2019-09-12 06:53 | NUR ---
PT WILL BE ENDORSED TO DAY SHIFT NURSE FOR CONTINUE OF CARE
--- NOTE | 2019-09-12 07:25 | NUR ---
RECEIVED REPORT FROM HEEL FORMER NURSE FOR CONTINUATION OF CARE. PATIENT IS SCHEDULED FOR A CT CHEST WITH CONTRAST TODAY, CONSENT TO BE SIGNED. PATIENT DENIES PAIN, BED IN LOW POSITION, CALL LIGHT ON AND WITHIN REACH WILL CONTINUE TO MONITOR.
[2019-09-12 07:51] LABS: BASOPHILS % (AUTO) 0.3 % (0.0-2.0); EOSINOPHILS # (AUTO) 0.6 K/uL (0-0.4); EOSINOPHILS % (AUTO) 5.4 % (0.0-4.0); HEMATOCRIT 21.9 % (36-52); HEMOGLOBIN 7.3 g/dL (12.0-18.0); LYMPHOCYTES # (AUTO) 1.4 K/uL (2.0-11.5); LYMPHOCYTES % (AUTO) 12.1 % (20.5-51.1); MEAN CORPUSCULAR HEMOGLOBIN 30 pg (27-31); MEAN CORPUSCULAR HGB CONC 33 g/dL (33-37); MEAN CORPUSCULAR VOLUME 89.8 fL (80-94); MONOCYTES # (AUTO) 0.8 K/uL (0.8-1.0); MONOCYTES % (AUTO) 7.3 % (1.7-9.3); NEUTROPHILS # (AUTO) 8.5 K/uL (1.8-7.7); NEUTROPHILS % (AUTO) 74.9 % (42.2-75.2); PLATELET COUNT (AUTO) 206 K/uL (140-450); RED BLOOD CELL COUNT(AUTO) 2.44 MIL/uL (4.20-6.10); RED CELL DISTRIBUTION WIDTH 15.1 % (11.6-13.7); WHITE BLOOD COUNT (AUTO) 11.3 K/uL (4.8-10.8)
[2019-09-12 08:00] VITALS: BP 118/52
[2019-09-12 08:06] LABS: ANION GAP 7.3 (8-16); CARBON DIOXIDE 27.4 mmol/L (21-32); CREATININE 0.8 mg/dL (0.7-1.3); POTASSIUM 3.7 mmol/L (3.5-5.1)
[2019-09-12] MEDS: FERROUS SULFATE 325 MG TABEC PO SCH (08:09)
[2019-09-12] MEDS: ASCORBIC ACID 500 MG TAB PO SCH (08:09)
--- NOTE | 2019-09-12 10:00 | NUR ---
PATIENT SIGNED CONSENT, TRANSLATING SERVICE USED TO COMMUNICATE WITH PATIENT AND PATIENT'S SPOUSE, FACULTY SUPPORT COORDINATOR NUMBER IS [id number], MILADY. TOLERATED MEDICATIONS WELL. WILL CONTINUE TO MONITOR.
[2019-09-12 10:56] LABS: PHOSPHORUS 3.8 mg/dL (2.5-4.9)
[2019-09-12] MEDS: NACL 0.9% 1,000 ML IV SCH (11:15)
--- NOTE | 2019-09-12 11:50 | NUR ---
IV FLUIDS GIVEN, PATIENT HAS RETURNED FROM CT, TOLERATED CONTRAST WELL. RESTING IN BED, WILL CONTINUE TO MONITOR.
[2019-09-12 12:00] VITALS: BP 127/71
--- NOTE | 2019-09-12 12:16 | NUR ---
IV MEDICATIONS HELD DUE TO DISCHARGE ORDER.
[2019-09-12] MEDS ORDERED: METR500T1 PO (13:22)
[2019-09-12] MEDS ORDERED: LEVO750T2 PO (13:22)
[2019-09-12] MEDS ORDERED: FER325 PO (13:22)
[2019-09-12] MEDS ORDERED: LACT-81 PO (13:22)
[2019-09-12] MEDS ORDERED: VITC500 PO (13:22)
--- NOTE | 2019-09-12 14:04 | NUR ---
REPORT GIVEN TO PRINCESS BECKER FOR CONTINUATION OF CARE. PATIENT IS PREPARING FOR DISCHARGE.
[2019-09-12 14:28] VITALS: BP 127/71
--- NOTE | 2019-09-12 14:30 | NUR ---
RECEIVED PATIENT FROM [place] FOR CONTINUITY OF CARE.
--- NOTE | 2019-09-12 14:56 | NUR ---
PATIENT SIGNED DISCHARGED PAPER. GIVEN DISCHARGE INSTRUCTION TO FOLLOW UP WITH PCP AND TO FOLLOW UP WITH [facility]. IV IS REMOVED.
--- NOTE | 2019-09-12 15:32 | NUR ---
WILL BRING HOME CLOTHES FROM HOME THEN PATIENT IS READY TO GO
--- NOTE | 2019-09-12 16:40 | NUR ---
DISCHARGED PATIENT VIA WHEELCHAIR. IS WITH THE PATIENT. BELONGINGS ARE WITH THE . PATIENT IS IN STABLE CONDITION. ID BAND REMOVED. IV REMOVED.
[2019-09-12 19:53] LABS: MAGNESIUM 1.8 mg/dL (1.8-2.4)
== END 2019-09-12 16:45 | disposition home or self-care (01) | DRG 871 ==
LOC: EDBD 05:05 → MED 05:05 → MIC 07:18 → MTU 09-11 06:30
PROVIDERS: ADMIT General Practice; ATTEND General Practice
PROC: 06HY33Z Insertion of Infusion Device into Lower Vein, Percutaneous Approach (ICD-10-PCS; principal; 2019-09-08)
PROC: B54BZZA Ultrasonography of Right Lower Extremity Veins, Guidance (ICD-10-PCS; 2019-09-08)
PROC: 30233K1 Transfusion of Nonautologous Frozen Plasma into Peripheral Vein, Percutaneous Approach (ICD-10-PCS; 2019-09-08)
PROC: 0F798DZ Dilation of Common Bile Duct with Intraluminal Device, Via Natural or Artificial Opening Endoscopic (ICD-10-PCS; 2019-09-09)
PROC: BF101ZZ Fluoroscopy of Bile Ducts using Low Osmolar Contrast (ICD-10-PCS; 2019-09-09)
PROC: 0FB98ZX Excision of Common Bile Duct, Via Natural or Artificial Opening Endoscopic, Diagnostic (ICD-10-PCS; 2019-09-09)
DX: A41.51 Sepsis due to Escherichia coli [E. coli] (principal); R65.21 Severe sepsis with septic shock; E43 Unspecified severe protein-calorie malnutrition; D65 Disseminated intravascular coagulation [defibrination syndrome]; K72.00 Acute and subacute hepatic failure without coma; K83.1 Obstruction of bile duct; R57.1 Hypovolemic shock; E87.1 Hypo-osmolality and hyponatremia; K83.09 Other cholangitis; D50.9 Iron deficiency anemia, unspecified; E11.9 Type 2 diabetes mellitus without complications; E78.00 Pure hypercholesterolemia, unspecified; E78.5 Hyperlipidemia, unspecified; E87.6 Hypokalemia; F17.200 Nicotine dependence, unspecified, uncomplicated; K86.9 Disease of pancreas, unspecified; I10 Essential (primary) hypertension; K74.60 Unspecified cirrhosis of liver; E83.42 Hypomagnesemia; E83.39 Other disorders of phosphorus metabolism; D64.9 Anemia, unspecified; D63.8 Anemia in other chronic diseases classified elsewhere; Z68.25 Body mass index [BMI] 25.0-25.9, adult
CPT/HCPCS: 36415; 70450; 71045; 71260; 76705; 80048; 80053; 80202; 80305; 81001; 82140; 82272; 82378; 82550; 82607; 82728; 82746; 82948; 83036; 83540; 83605; 83690; 83735; 83880; 84100; 84439; 84443; 84484; 85025; 85045; 85610; 85730; 86301; 86704; 86706; 86708; 86709; 86803; 86886; 86900; 86901; 87040; 87081; 87086; 87186; 87340; 87804; 93005; 96361; 96365; 96375; 99285; C1758; C1769; G0482; J1815; J1885; J1956; J2405; J2543; J2704; J2916; J3370; J3430; J3475; J3480; J3490; J7030; J7060; J8597; P9017; Q0092; Q9967